=== PATIENT | female | born 1965 | race Caucasian/White ===

== ENCOUNTER 2018-03-17 16:05 | Outpatient (CLI) | payer OTHER, BC ==
[2015-07-08 07:32] VITALS: O2SAT 96
== END 2018-03-17 16:06 | disposition home or self-care (01) | DRG 556 ==
LOC: CONVCARE 16:05
PROVIDERS: ATTEND Orthopaedic Surgery
DX: M79.602 Pain in left arm (principal); G56.02 Carpal tunnel syndrome, left upper limb; S19.9XXD Unspecified injury of neck, subsequent encounter; S59.902A Unspecified injury of left elbow, initial encounter
CPT/HCPCS: 73070

== ENCOUNTER 2019-05-24 11:42 | Day surgery (SDC) | payer BC, OTHER ==
[~2019-05-24 11:42] MED LIST: LIDOCAINE HCL 1% MPF 30 SOL ONE; PROPOFOL 500 MG/50 ML EMU IV ONE
[2019-05-24 12:16] VITALS: RESP 16
[2019-05-24 13:58] VITALS: PULSE 71
[2019-05-24 14:23] VITALS: BP 120/65; TEMP 98; O2SAT 100
== END 2019-05-24 14:45 | disposition home or self-care (01) | DRG 951 ==
LOC: SURG 11:42
PROVIDERS: ATTEND Surgery
DX: Z12.11 Encounter for screening for malignant neoplasm of colon (principal); D50.9 Iron deficiency anemia, unspecified; R10.10 Upper abdominal pain, unspecified; D12.2 Benign neoplasm of ascending colon
CPT/HCPCS: 99001; J2001; J2704